=== PATIENT | male | born 1970 | race Caucasian/White ===

== ENCOUNTER 2022-08-14 07:31 | Emergency (ER) | payer OTHER ==
[~2022-08-14] VITALS: Ht 182.9 cm; Wt 127.0 kg
[~2022-08-14 07:31] MED LIST: ALLEGRA ALLERG180 MG PO; COZAAR25 MG; PROVENTIL0.5 ML/2.5; TESSALON PERLE100 MG PO
[2022-08-14] MEDS ORDERED: CANDESARTAN-HC1 EAC1 PO (07:40)
[2022-08-14] MEDS ORDERED: JANUMET XR 50-1 EACH PO (07:40)
== END 2022-08-14 16:50 | disposition home or self-care (01) ==
LOC: ER 07:31
DX: K52.9 Noninfective gastroenteritis and colitis, unspecified (principal); I10 Essential (primary) hypertension; E11.9 Type 2 diabetes mellitus without complications; Z20.822 Contact with and (suspected) exposure to COVID-19

== ENCOUNTER 2022-12-16 16:55 | Emergency (ER) | payer OTHER ==
[~2022-12-16] VITALS: Ht 182.9 cm; Wt 119.3 kg
[~2022-12-16 16:55] MED LIST changes: +CANDESARTAN-HC1 EAC1 PO; +JANUMET XR 50-1 EACH PO
== END 2022-12-16 19:11 | disposition home or self-care (01) ==
LOC: ER 16:55
DX: M54.59 Other low back pain (principal)